=== PATIENT | male | born 2000 | race Native Hawaiian/Other Pacific Islander ===

== ENCOUNTER 2023-08-25 21:44 | Emergency (ER) | payer OTHER ==
[~2023-08-25] VITALS: Ht 182.9 cm; Wt 152.0 kg
[2023-08-25 22:57] VITALS: BP 138/80; PULSE 90; RESP 18; O2SAT 97
[2023-08-27] MEDS ORDERED: EPIN0.054 OP (14:13)
== END 2023-08-26 03:16 | disposition left against medical advice (07) ==
LOC: ER 21:44
DX: H57.89 Other specified disorders of eye and adnexa (principal); Z53.21 Procedure and treatment not carried out due to patient leaving prior to being seen by health care provider

== ENCOUNTER 2023-08-27 10:46 | Emergency (ER) | payer OTHER ==
[~2023-08-27] VITALS: Ht 182.9 cm; Wt 143.0 kg
[2023-08-27] MEDS ORDERED: EPIN0.054 OP (14:13)
[2023-08-27 14:30] VITALS: BP 149/93; PULSE 108; RESP 18; TEMP 98.9; O2SAT 99
== END 2023-08-27 14:31 | disposition home or self-care (01) ==
LOC: ER 10:46
DX: H10.9 Unspecified conjunctivitis (principal); Z79.899 Other long term (current) drug therapy